=== PATIENT | female | born 1960 | race Caucasian/White ===

== ENCOUNTER → 2018-06-15 | Outpatient (CLI) | payer BC ==
[2018-06-15 10:40] LABS: HEMATOCRIT 44.9 % (36.0-47.0); HEMOGLOBIN 15.2 g/dl (12.0-15.5); MEAN CORPUSCULAR HEMOGLOBIN 31.5 pg (27.0-33.0); MEAN CORPUSCULAR HGB CONC 33.9 g/dl (32.0-36.5); MEAN CORPUSCULAR VOLUME 93.2 fl (80.0-96.0); PLATELET COUNT, AUTOMATED 284 10^3/uL (150-450); RED BLOOD COUNT 4.82 10^6/uL (4.00-5.40); RED CELL DISTRIBUTION WIDTH 12.7 % (11.5-14.5); WHITE BLOOD COUNT 7.3 10^3/uL (4.0-10.0)
[2018-06-15 11:02] LABS: CHOLESTEROL LEVEL 209 MG/DL (<200); HDL CHOLESTEROL 55 MG/DL (>40); LDL CHOLESTEROL 126 MG/DL (<100); NON-HDL-C 154 MG/DL; TRIGLYCERIDES LEVEL 142 MG/DL (<150)
[2018-06-17 11:59] LABS: TOTAL 25(OH) VITAMIN D 46.5 NG/ML (30.0-100.0)
== END ==
LOC: M WUC 07:57
DX: D45 Polycythemia vera (principal); E78.2 Mixed hyperlipidemia; E03.9 Hypothyroidism, unspecified
CPT/HCPCS: 84443